=== PATIENT | male | born 2000 | race Two or more races ===

== ENCOUNTER 2022-12-16 18:16 | Emergency (ER) | payer SELFPAY ==
[~2022-12-16] VITALS: Ht 180.3 cm; Wt 72.7 kg
[2022-12-16 18:19] VITALS: BP 152/80
[2022-12-16] MEDS ORDERED: DOXYCYCLINE HYCLATE 100 MG TABLET PO ONE (20:00)
[2022-12-16] MEDS ORDERED: BACITRACIN 0.9 GM PACKET OINTMENT TP ONE (20:00)
[2022-12-16] MEDS ORDERED: DOXY-354 PO (21:00)
[2022-12-19 08:06] LABS: HIV 1-2 SCREEN 4TH GEN W/RFLX Non Reactive (Non Reactive)
== END 2022-12-16 22:04 | disposition home or self-care (01) ==
LOC: EMS 18:23
DX: S31.809A Unspecified open wound of unspecified buttock, initial encounter (principal); F12.90 Cannabis use, unspecified, uncomplicated; X58.XXXA Exposure to other specified factors, initial encounter; Y93.89 Activity, other specified; Y92.89 Other specified places as the place of occurrence of the external cause; Y99.8 Other external cause status
CPT/HCPCS: 86592; 87389; 99283